=== PATIENT | male | born 1950 | race Caucasian/White ===

== ENCOUNTER → 2018-04-15 12:04 | Outpatient (CLI) | payer MEDICARE, SELFPAY ==
--- NOTE | 2018-04-15 12:12 | XR_ITS ---
XR knee LT 3V HISTORY: ITS.REASON: LEFT KNEE PAIN ORDERING PHYSICIAN: Jeffrey Bower MD PATIENT AGE: 67 years COMPARISON: None FINDINGS: No fracture or dislocation. No lytic or blastic change. Normal mineralization. No significant arthritic changes evident. Small calcific density is present in the proximal patella anteriorly may be due to an enthesophyte No other significant findings IMPRESSION: Negative left knee
== END ==
PROVIDERS: PCP Internal Medicine Adolescent Medicine; Visit Provider Internal Medicine Adolescent Medicine
DX: M25.562 Pain in left knee (principal)
CPT/HCPCS: 73562

== ENCOUNTER → 2018-10-08 15:15 | Outpatient (CLI) | payer MEDICARE, SELFPAY ==
--- NOTE | 2018-10-08 15:33 | MR_ITS ---
MR shoulder RT wo con Ordering Physician: Alexandria Ortiz Patient Age: 68 years: Male HISTORY: ITS.REASON: RT SHOULDER PAIN Injury to right shoulder 5 years ago. Pain past 5 years has gotten worse recently with limited range of motion right arm, right shoulder. TECHNIQUE: Multiplanar multisequence imaging 1.5T MR COMPARISON :No previous studies of right shoulder. A chest film from February 2017 partially includes right shoulder view FINDINGS Supraspinatus tendinopathy & tear.: On the coronal views the patient has a slightly long downward sloping acromion but there is abnormal signal in the thickened supraspinatus tendon beneath the the acromion reflecting tendinopathy throughout subacromial arch & critical zone of supraspinatus tendon. Also notable AC joint hypertrophy/arthropathy encroaches upon the supraspinatus at medial outlet But more peripheral at the supraspinatus tendon there is a fluid-filled full-thickness supraspinatus/ rotator cuff tear defect measuring at least 12 mm diameter at tendon insertion. Minimal associated fluid at subdeltoid subacromial bursa Degenerative Cystic changes, insertional erosions & mild osseous irregularity is seen beneath this region throughout the cap of greater tuberosity.. Just anterior to this area there is a focal area of prominent abnormal signal-suspect this is a abnormal biceps tendon just superior as it passes just above the bicipital groove... Likely Enlargement and increased interstitial signal reflect generous interstitial tear of biceps tendon.. I suspect is slightly redundant but is not been transected. Fluid is seen tracking along the biceps tendon sheath more inferiorly. Alternatively the focal signal here could reflect focal fluid collection at the anterior interval. Subscapularis tendon with upper normal signal, along its superior margin with possible mild tendinopathy here. Some of this signal may reflect some fluid joint fluid outlining the subcoracoid recess as well. Infraspinatus tendon.: Insertional erosion. Suggestion minor tendinopathy at its insertion. Scant increased signal along the tendon Glenoid labrum. Fluid signal is seen beneath the anterior superior labrum. This extends up to the level of the biceps tendon insertion... Most likely a prominent prominent sublabral foramen & recess as it does not continue posterior to the biceps tendon insertion. However this is quite evident on the coronal view and difficult to totally exclude a superior labral tear with this overall appearance. This observation may benefit from inspection if further procedure performed. IMPRESSION......... 1. Full-thickness Rotator cuff tear at supraspinatus tendon insertion: ... Supraspinatus tendinopathy & tear., Thickened supraspinatus tendon seen throughout the subacromial space, with at least 12 mm full-thickness tear fluid-filled defect at supraspinatus insertion 2. Downward sloping acromion encroaches upon thickened supraspinatus tendon. Also AC joint hypertrophy encroaches upon supraspinatus tendon beneath medial outlet 3. Abnormal Biceps Tendon.. Generous interstitial tear yields focal enlargement and increased signal of biceps tendon just superior to the bicipital groove. 4. Also note Generous sublabral recess;-seen extending extends just beneath biceps tendon insertion... Difficult to totally exclude a superior labral tear in this latter area. But favor more likely Generous sublabralforamen and recess 5. Small Joint effusion. 6. Also note tendinopathy insertion of infraspinatus tendon & subscapularis tendon.
== END ==
PROVIDERS: PCP Internal Medicine Adolescent Medicine; Visit Provider Nurse Practitioner Family
DX: M25.511 Pain in right shoulder (principal); M75.101 Unspecified rotator cuff tear or rupture of right shoulder, not specified as traumatic; G89.29 Other chronic pain
CPT/HCPCS: 73221

== ENCOUNTER 2018-12-26 07:30 | Outpatient (RCR) | payer MEDICARE, SELFPAY | END 2018-12-31 11:07 | disposition home or self-care (01) | LOC: PT.CARL 07:30 | PROVIDERS: Visit Provider Nurse Practitioner Family | DX: M75.101 Unspecified rotator cuff tear or rupture of right shoulder, not specified as traumatic (principal) | CPT/HCPCS: 97014; 97110; 97140; 97163; G0283 ==

== ENCOUNTER → 2019-02-24 15:50 | Outpatient (CLI) | payer MEDICARE, SELFPAY ==
--- NOTE | 2019-02-24 15:59 | XR_ITS ---
EXAM: XR lumbar spine min 4V HISTORY: ITS.REASON: COCCYDYNIA,LT SIDED LOW BACK PAIN ORDERING PHYSICIAN: Jeffrey Bower MD PATIENT AGE: 68 years COMPARISON: CT scan abdomen pelvis 09/27/2015 FINDINGS: There is straightening of normal curvature in the thoracolumbar region. There is mild nonrecent anterior wedging of the T12 vertebral body and minor wedging was seen of T12 on the previous CT scan in September 2015 there has been slight further compression of the T12 vertebral body since that study. There is multilevel anterior and lateral ossific spurring. There is no pars defect. There are hypertrophic facet changes at L4-5 and L5-S1 levels. There appears be bony spinal stenosis at the L 34, L4-5 and L5-S1 levels. IMPRESSION: Multilevel degenerative changes, hypertrophic facet changes lower lumbar spine and there likely is true bony spinal stenosis lower lumbar spine and if there are clinical symptoms suggestive of spinal stenosis consider follow-up CT scan lumbar spine for better evaluation.
--- NOTE | 2019-02-24 15:59 | XR_ITS ---
XR sacroiliac joint BI min 3V COMPARISON: None HISTORY: Low back pain and tailbone pain TECHNIQUE: AP and oblique views of the SI joints FINDINGS: Both SI joints appear normal appearing symmetrical with no sclerosis or other abnormality. The symphysis pubis is normal. IMPRESSION: Negative SI joints bilaterally
--- NOTE | 2019-02-24 15:59 | XR_ITS ---
XR sacrum coccyx min 2V COMPARISON: CT scan abdomen pelvis 09/27/2015 HISTORY: Low back pain and tailbone pain TECHNIQUE: AP and lateral views sacrum and coccyx FINDINGS: The SI joints and symphysis pubis are normal. There appears be slight subluxation of the sacrococcygeal junction which was not seen on the previous CT scan in September 2015. There is 2 to 3 mm anterior offset of the coccygeal segments in relationship to the fifth sacral segment. IMPRESSION: Minor subluxation S 5 and C1 as described and consider CT scan of the lumbar spine to include sacrum and coccyx to evaluate for suspected spinal stenosis lower lumbar spine and to better define the anatomical relationship of the S5 sacral segment and C1 coccygeal segment
== END ==
PROVIDERS: PCP Internal Medicine Adolescent Medicine; Visit Provider Internal Medicine Adolescent Medicine
DX: M53.3 Sacrococcygeal disorders, not elsewhere classified (principal); M54.42 Lumbago with sciatica, left side
CPT/HCPCS: 72110; 72202; 72220

== ENCOUNTER → 2019-03-09 14:13 | Outpatient (CLI) | payer MEDICARE, SELFPAY ==
--- NOTE | 2019-03-09 14:21 | CT_ITS ---
CT lumbar spine wo con INDICATION: Fell Last week, C/O Lower lumbar pain; XRAY on pacs. ITS.REASON: SPINAL STENOSIS ORDERING PHYSICIAN: Jeffrey Bower MD PATIENT AGE: 68 years COMPARISON: None TECHNIQUE: Axial images obtained with sagittal and coronal reformats. All CT scans at the facility use one or more dose reduction, viz: automated exposure control, ma/kV adjustment per patient size (including targeted exams where dose is matched to indication, i.e. head), or iterative reconstruction technique. FINDINGS: There is normal alignment. No fracture or dislocation is evident. No lytic or blastic change. T11-T12: Mild degenerative disc disease. T12-L1: Mild degenerative disc disease. Mild bulging disc. L1-L2: Mild facet and ligamentum flavum hypertrophy. L2-L3: Endplate hypertrophic change with facet and ligamentum flavum hypertrophy and bulging disc with bilateral lateral recess and mild bilateral foraminal narrowing. L3-L4: Degenerative disc disease with bulging disc along with moderate facet and ligamentum flavum hypertrophy with bilateral lateral recess and moderate to severe bilateral foraminal narrowing. There is canal stenosis at 9 mm. L4-5: Bulging disc with severe facet and ligamentum flavum hypertrophy with severe right lateral recess and foraminal narrowing. There are prominent facet osteophytes on the right at this level. There is moderate to severe left-sided foraminal narrowing and lateral recess narrowing. There is canal stenosis. L5-S1: Facet and ligamentum flavum hypertrophy with mild bulging disc. There is an exophytic soft tissue density projecting superior aspect of the left kidney and may be due to renal cyst at 15 mm. IMPRESSION: Abnormal CT of the lumbar spine with multilevel lumbar spondylosis with bulging disc, facet and ligamentum hypertrophy with bilateral lateral recess and foraminal narrowing. Please see above for detailed description at each level. L3-L4: Degenerative disc disease with bulging disc along with moderate facet and ligamentum flavum hypertrophy with bilateral lateral recess and moderate to severe bilateral foraminal narrowing. There is canal stenosis at 9 mm. L4-5: Bulging disc with severe facet and ligamentum flavum hypertrophy with severe right lateral recess and foraminal narrowing. There are prominent facet osteophytes on the right at this level. There is moderate to severe left-sided foraminal narrowing and lateral recess narrowing. There is canal stenosis
== END ==
PROVIDERS: PCP Internal Medicine Adolescent Medicine; Visit Provider Internal Medicine Adolescent Medicine
DX: M48.061 Spinal stenosis, lumbar region without neurogenic claudication (principal)
CPT/HCPCS: 72131

== ENCOUNTER → 2019-10-23 12:44 | Outpatient (CLI) | payer MEDICARE, SELFPAY ==
--- NOTE | 2019-10-23 12:50 | CT_ITS ---
PROCEDURE: CT CHEST W CON CLINICAL HISTORY: PULMONARY NODULE COMPARISON: No exams were available for comparison TECHNIQUE: Axial images obtained with sagittal and coronal reformats. All CT scans at the facility use one or more dose reduction, viz: automated exposure control, ma/kV adjustment per patient size (including targeted exams where dose is matched to indication, i.e. head), or iterative reconstruction technique. FINDINGS: There hyperexpansion of the lung rendon. There is no acute pneumonic infiltrate. There is 5-6 mm noncalcified pulmonary nodule superior segment right lower lobe subpleural in location. No other pulmonary nodules are noted. There is no pleural fluid. Cardiac size is normal, there is mild aortic tortuosity. There is no abnormal mediastinal or hilar lymphadenopathy. There are mild multilevel degenerate changes of the thoracic spine. IMPRESSION: Mild emphysematous change with small noncalcified pulmonary nodule. There is no indication of whether the patient is a smoker or not. However suggest a follow-up CT scan of the chest 6-8 months for continuing evaluation Dictated by: Dr. Ralph Ross MD 10/24/2019 08:[address] Ralph Ross MD in [facility] 10/24/2019 08:59
[2019-10-23 13:17] LABS: Blood Urea Nitrogen 12 mg/dL (7-18); Creatinine,Serum 0.84 mg/dL (0.70-1.30); Estimated Glomerular Filt Rate 90 ml/min (>60); GFR (African American) 109 ML/MIN (>60)
== END ==
PROVIDERS: PCP Internal Medicine Adolescent Medicine; Visit Provider Internal Medicine Adolescent Medicine
DX: R91.1 Solitary pulmonary nodule (principal)
CPT/HCPCS: 36415; 71260; 82565; 84520; Q9967

== ENCOUNTER 2019-11-24 03:04 | Observation (INO) ==
--- NOTE | 2019-11-24 03:29 | Emergency Department Note ---
ED Disposition Clinical Impression: Chest pain Qualifiers: Chest pain type: unspecified Qualified Code(s): R07.9 - Chest pain, unspecified Disposition: Admitted as Observation Condition on Discharge: Good (Stable) Referrals: Jeffrey Bower MD [Primary Care Provider] - Time of Disposition: 04:02 - Critical Care Critical Care Time: No Attestation: On 11/24/19, the high probability of a clinically significant, sudden or life threatening deterioration of the following system(s) required my full and direct attention, intervention and personal management. The time I documented below is in addition to time spent performing reported procedures but includes the following listed in this critical care notation. Medical Decision Making - Medical Records Medical records reviewed: Yes: I reviewed the patient's medical records. - Torsten Inquiry Pt receiving controlled substance: No Tosrten was queried for this patient: No Vital Signs: 11/24/19 03:16 11/24/19 03:25 Temperature 97.8 F Temperature Source Oral Pulse Rate [Right Brachial] 66 73 Respiratory Rate 18 12 Blood Pressure [Right Arm] 140/79 122/73 Blood Pressure Mean [Right Arm] 99 89 Blood Pressure Source [Right Arm] Automatic Cuff Automatic Cuff Blood Pressure Position [Right Arm] Sitting Sitting 02 Sat by Pulse Oximetry 99 95 Oxygen Delivery Method Room Air Room Air - Lab Data Lab results reviewed: Yes: I reviewed the patient's lab results. Lab Results 11/24/19 03:15: WBC 6.4, RBC 4.64, Hgb 14.3, Hct 44.5, MCV 95.8 H, MCH 30.7, MCHC 32.1, RDW 14.0, Plt Count 269, MPV 8.7, Neut % (Auto) 56.0, Lymph % (Auto) 28.1, Lamar % (Auto) 8.5, Eos % (Auto) 6.1, Baso % (Auto) 1.3, Neut # (Auto) 3.6, Lymph # (Auto) 1.8, Lamar # (Auto) 0.5, Eos # (Auto) 0.4, Baso # (Auto) 0.1 11/24/19 03:15: Sodium 142, Potassium 3.7, Chloride 107, Carbon Dioxide 24, Anion Gap 14.7, BUN 12, Creatinine 0.75, Estimated Creat Clear 68, Estimated GFR 103, Est GFR ( Amer) 124, Glucose 95, Calcium 8.2 L, Magnesium 2.1, Troponin I < 0.02 11/24/19 03:15: Total Bilirubin 0.2, Direct Bilirubin 0.1, Indirect Bilirubin 0.1, AST 13 L, ALT 13, Alkaline Phosphatase 71, Total Protein 6.5, Albumin 3.5 Result diagrams: 11/24/19 03:15 11/24/19 03:15 Orders (Tests/Meds): ED MEDICATIONS Generic Name Dose Route Start Last Admin Trade Name Freq PRN Reason Stop Dose Admin Nitroglycerin 0.4 mg 11/24/19 03:26 Nitrostat 0.4mg Sl Tablet SL 11/25/19 03:26 [id number] PRN Chest Pain Discontinued Medications Generic Name Dose Route Start Last Admin Trade Name Freq PRN Reason Stop Dose Admin Aspirin 324 mg 11/24/19 03:26 11/24/19 03:37 Aspirin 81mg Chewable Tablet PO 11/24/19 03:27 324 mg ONCE ONE Administration Belladonna Alkaloids 60 ml 11/24/19 03:26 11/24/19 03:37 Gi Cocktail 60ml Udc PO 11/24/19 03:27 60 ml ONCE ONE Administration Nitroglycerin 1 gm 11/24/19 03:42 11/24/19 03:47 Nitroglycerin 1 Inch Oint Udp TD 11/24/19 03:43 1 gm ONCE ONE Administration ORDERS Category Date Time Status Chest XR -- portable [XR chest portable] Stat Exams 11/24/19 03:25 Ordered B-Type Natriuretic Peptide Stat Lab 11/24/19 03:15 Received Troponin I Q3H Lab 11/24/19 06:30 Ordered Troponin I Q3H Lab 11/24/19 09:30 Ordered ECG Request by /Elizabeth Routine Y 11/24/19 03:23 Ordered - Radiology Data #1 Image(s): Chest Image Reviewed: Yes I reviewed the patient's radiology image Preliminary Findings: Normal/NAD, No Infiltrates Seen 03:54 portable chest x-ray was performed. Preliminary reading by myself showed: No free air, no effusion, no infiltrate, no pneumothorax. Patient did have some chronic broncho-interstitial changes noted. - ECG Data Tracing #1 I reviewed this ECG and interpreted as documented below: (EKG at 3:07 AM showed a sinus bradycardia with sinus arrhythmia, rate of 58 bpm.) Medical Decision Narrative: 03:31 Patient evaluated. EKG performed which showed no acute changes. Patient received 4 aspirin 81 mg p.o. here in the ER. He also received 1 nitroglycerin sublingual which did not have any effect on his pain. He has subsequently received a GI cocktail p.o. Portable chest x-ray and cardiac labs ordered and are pending at this time. 04:00 patient had a normal EKG. Chest x-ray also appears to be normal. His CBC, BMP, BNP, initial troponin and LFTs are all normal. Patient did not have any relief with 1 nitroglycerin sublingual. He subsequently received GI cocktail p.o. which also did not help his discomfort. He then had a 1 inch Nitropaste placed the anterior chest wall with labs still pending, and at this point patient states that he is feeling much better and is not feeling much discomfort at all since the Nitropaste was started. I did go ahead and discussed the patient's case with Dr. He who is on-call for Dr. Dodson and he has agreed to the have the patient admitted to observation for chest pain rule o mo. I have discussed results of work-up, diagnosis and care plan with patient, and daughter. They all understand and all questions answered. Patient will now be admitted. Chest Pain HPI - General Chief Complaint: Chest Pain Stated Complaint: CP; NEW ONSET OF AFIB Time Seen by Provider: 11/24/19 03:11 Mode of Arrival: EMS Limitations: No Limitations Description of Symptoms (Recalled from ER Triage Doc. by RN): PATIENT PRESENTS TO TX 6 VIA EMS FROM HOME C/O INTERMITTENT SHARP L SIDED CHEST PAIN X 2 DAYS. PATIENT REPORTS SEEING PCP YESTERDAY REGARDING THE CHEST PAIN, WHO SENT PATIENT TO DR. TOBIN'S OFFICE FOR EVALUATION. REPORTS BEING DISCHARGED FROM DR. TOBIN'S OFFICE WITH A NEW PRESCRIPTION OF METOPROLOL. REPORTS STARTING DOSE YESTERDAY MORNING. EMS REPORTS 12-LEAD EKG SHOWED A-FIB, BUT PATIENT DENIES ANY HISTORY. EKG UPON ARRIVAL TO ED SHOW NSR. - History of Present Illness HPI narrative: Patient is here in emergency room for evaluation complaining of left-sided chest pain. Patient states he has been having chest pain off and on over the past 3 to 4 days. Patient states that the past 2 days he has woken up around 4:00 in the morning with the discomfort. Pain is left-sided anterior and mid to upper chest. Pain is sharp. Patient denies migration of pain into neck back shoulders arms. No diaphoresis. No nausea or vomiting. Patient saw his PCP yesterday and was referred to cardiology. He saw Dr. Tobin's midlevel yesterday who performed an EKG and subsequently placed patient on metoprolol 25 mg HS. Patient is to follow back up with cardiology in 2 weeks for recheck. Patient decided to call EMS this morning as he began having pain late last night and it has been present for least 5 to 6 hours and does not seem to be getting any better. No shortness of breath. No cough. Patient had a stress test and subsequent heart catheterization back in 2014. Patient did not have any coronary arteries that were amenable to any type of stenting. - Related Data Home Medications Medication Instructions Recorded Confirmed cetirizine 10 mg tablet 10 mg PO DAILY tab 11/23/19 11/24/19 finasteride 5 mg tablet 5 mg PO DAILY tab 11/23/19 11/24/19 pantoprazole 40 mg tablet,delayed 40 mg PO DAILY tab 11/23/19 11/24/19 release tamsulosin 0.4 mg capsule 0.4 mg PO DAILY cap 11/23/19 11/24/19 Metoprolol Succinate 25 mg PO QHS 11/24/19 11/24/19 Allergies Allergy/AdvReac Type Severity Reaction Status Date / Time No Known Allergies Allergy Verified 11/23/19 11:51 [facility] History - Hepatitis A Screen Drug use history?: No High risk sexual behaviors?: No History of sexually transmitted infection?: No Currently employed?: No Childcare worker?: No Do you have indoor plumbing?: Yes Do you have electricity?: Yes Attestation statement:: This patient has been screened for Hepatitis A risk factors. I have reviewed the patient's past medical history: Yes Medical History: Reports:: Gastroesophageal Reflux Disease(GERD) Laterality Cases: Bilateral: Total Knee Replacement Other Surgeries: Yes: Cholecystectomy - Social History Smoking Status: Current every day smoker # Packs/Day (cigarettes): 1 #Yrs smoked (if former smoker): 40 Alcohol Intake: never Substance Use Type: denies use Occupational Status: retired Housing: house Household Members: spouse Family Hx:: Cancer Comment: Mother-Cancer, Pacemaker ROS Obtained: Yes All systems reviewed & no additional complaints - Constitutional Constitutional: Reports system reviewed and no additional complaints, except as docu - Eyes Eyes: Reports system reviewed and no additional complaints, except as docu - ENT Ears, Nose, Mouth, and Throat: Reports system reviewed and no additional complaints, except as docu - Cardiovascular Cardiovascular: Reports system reviewed and no additional complaints, except as docu, Reports as per HPI, Reports chest pain, Denies chest pain at rest, Denies leg pain with activity, Denies dyspnea, Denies irregular heart rhythm, Denies palpitations, Denies shortness of breath causing sudden awakening, Denies pedal edema, Denies radiating jaw, neck or arm pain, Denies rapid heart rate - Respiratory Respiratory: Yes system reviewed and no additional complaints, except as docu, Yes as per HPI, No chest congestion, No cough - Gastrointestinal Gastrointestingal: Reports: system reviewed and no additional complaints, except as docu - Genitourinary Male Genitourinary: Reports system reviewed and no additional complaints, except as docu - Musculoskeletal Musculoskeletal: Reports system reviewed and no additional complaints, except as docu - Integumentary/Breasts Skin/Breast: Reports system reviewed and no additional complaints, except as docu - Neurologic Neurologic: Reports system reviewed and no additional complaints, except as docu - Endocrine Endocrine: Reports system reviewed and no additional complaints, except as docu - Hematologic/Lymphatic Henatologic/Lymphatic: Reports system reviewed and no additional complaints, except as docu - Allergic/Immunologic Allergic/Immunologic: Reports system reviewed and no additional complaints, except as docu Physical Exam - General General appearance: alert, in no apparent distress - Head Head exam: atraumatic, normocephalic, normal inspection - Eye Eye exam: Present: normal appearance, PERRL, EOMI - ENT ENT exam: Present: mucous membranes moist, other (No otic or nasal discharge.) - Neck Neck exam: Present: trachea midline - Chest Chest inspection: Present: normal inspection, symmetric chest wall rise - Respiratory Respiratory exam: Present: normal lung sounds bilaterally. Absent: wheezes - Cardiovascular Cardiovascular exam: Present: regular rate, normal heart sounds. Absent: systolic murmur - Abdominal Exam Abdominal exam: Present: soft, normal bowel sounds. Absent: tenderness, guarding, rebound, rigidity - Extremities Exam Extremities exam: Present: normal inspection, full ROM - Back Exam Back exam: Present: normal inspection - Neurological Exam Neurological exam: Present: alert, oriented X3, CN II-XII intact - Psychiatric Psychiatric exam: Present: normal affect, normal mood. Absent: agitated, anxious - Skin Skin exam: Present: warm, dry, intact. Absent: rash, cyanosis, diaphoresis
[2019-11-24 03:30] LABS: Basophils # 0.1 K/mm3 (0-0.2); Basophils % 1.3 % (0.1-2.0); Eosinophils # 0.4 K/mm3 (0.0-0.4); Eosinophils % 6.1 % (0.1-12.0); Hematocrit 44.5 % (42.0-52.0); Hemoglobin 14.3 g/dL (14.1-18.0); Lymphocytes # 1.8 K/mm3 (0.7-4.5); Lymphocytes % 28.1 % (10-50); Mean Corpuscular HGB Conc 32.1 g/dL (31.8-35.4); Mean Corpuscular Volume 95.8 fl (80-94); Mean Platelet Volume 8.7 fl (7.4-10.4); Monocytes # 0.5 K/mm3 (0.1-1.0); Monocytes % 8.5 % (1.7-9.3); Neutrophils # 3.6 K/mm3 (1.8-7.8); Platelet Count 269 K/mm3 (142-424); Red Blood Count 4.64 M/mm3 (4.60-6.20); White Blood Count 6.4 K/mm3 (4.8-10.8)
[2019-11-24 03:40] LABS: Albumin Level 3.5 gm/dL (3.4-5.0); Bilirubin,Direct 0.1 mg/dL (0.0-0.2); Bilirubin,Indirect 0.1 mg/dL (0.0-0.9); Bilirubin,Total 0.2 mg/dL (0.2-1.0); Total Protein,Serum 6.5 gm/dL (6.4-8.2)
[2019-11-24 03:43] LABS: Anion Gap 14.7 mEq/L (5-15); Blood Urea Nitrogen 12 mg/dL (7-18); Calcium 8.2 mg/dL (8.5-10.1); Carbon Dioxide 24 mmol/L (21.0-32.0); Chloride 107 mmol/L (98-107); Glucose 95 mg/dL (74-106); Sodium 142 mmol/L (136-145)
--- NOTE | 2019-11-24 07:48 | History & Physical Report ---
*Admission Date: 11/24/19 *Chief complaint: chest pain *History of present illness: 69-year-old gentleman with history of tobacco use disorder, COPD, hyperlipidemia who presented to the ER with worsening chest pain. Of note patient was seen in clinic yesterday for same complaint. EKG was obtained at that time that was normal and stable over the past 6 months. He was referred to cardiology because of suspicious complaint and several risk factors with a heart score of 4. On presentation to cardiology as blood pressure was slightly elevated he was initiated on beta-kenya and scheduled for very close follow-up. Patient had had a stress test and heart cath 5 years ago that had no clinically significant lesions. After getting home however patient had recurrence of his chest pain. Yesterday during office hours he had stated that it would occur in the middle of the night and sometimes wake him from sleep. Has been going on for the past several days to week. Shortness of breath is at his baseline with his COPD. In the ER EKG continue to be normal with negative troponins. Pain did not respond to nitroglycerin. He was admitted for observation and inpatient cardiology consult. [facility] History I have reviewed the patient's past medical history: Yes Medical History: Reports:: Gastroesophageal Reflux Disease(GERD), Heart Murmur, Hyperlipidemia, Hypertension Denies:: Cancer, Diabetes Mellitus Type 1, Diabetes Mellitus Type 2, MRSA *Have you ever received a pneumonia vaccine?: Yes *Have you received a flu vaccine this season?: Yes Other Medical History: Reports: Cataracts, Sinus Problems Laterality Cases: Bilateral: Cataract, Total Knee Replacement Other Surgeries: Yes: Cardiac Catheterization, Cholecystectomy, Colonoscopy Amputation: No Fractures: No - *Social History Educational Level: Attended High School Smoking Status: Current every day smoker Tobacco Type: cigars # Packs/Day (cigarettes): 1 #Yrs smoked (if former smoker): 40 Alcohol Intake: former Substance Use Type: denies use *Occupational Status:: retired Housing: house Household Members: spouse, family *Travel in the last 8 weeks: None Family Hx:: Cancer, Hypertension Review of Systems - Review of Systems Review of systems:: pertinent systems reviewed and negative unless documented below Meds Home Medications Medication Instructions Recorded Confirmed Type cetirizine 10 mg tablet 10 mg PO HS tab 11/23/19 11/24/19 History finasteride 5 mg tablet 5 mg PO HS tab 11/23/19 11/24/19 History pantoprazole 40 mg tablet,delayed 40 mg PO HS tab 11/23/19 11/24/19 History release tamsulosin 0.4 mg capsule 0.4 mg PO HS cap 11/23/19 11/24/19 History Metoprolol Succinate 25 mg PO HS 11/24/19 11/24/19 History Allergies Allergy/AdvReac Type Severity Reaction Status Date / Time No Known Allergies Allergy Verified 11/23/19 11:51 Exam Vital signs and Labs for Last 24 Hours: Temp Pulse Resp BP Pulse Ox 97.9 F 65 21 123/63 96 11/24/19 04:53 11/24/19 04:55 11/24/19 04:53 11/24/19 04:53 11/24/19 04:53 Laboratory Results - last 24 hr 11/24/19 03:15: WBC 6.4, RBC 4.64, Hgb 14.3, Hct 44.5, MCV 95.8 H, MCH 30.7, MCHC 32.1, RDW 14.0, Plt Count 269, MPV 8.7, Neut % (Auto) 56.0, Lymph % (Auto) 28.1, [place] % (Auto) 8.5, Eos % (Auto) 6.1, Baso % (Auto) 1.3, Neut # (Auto) 3.6, Lymph # (Auto) 1.8, [place] # (Auto) 0.5, Eos # (Auto) 0.4, Baso # (Auto) 0.1 11/24/19 03:15: Sodium 142, Potassium 3.7, Chloride 107, Carbon Dioxide 24, Anion Gap 14.7, BUN 12, Creatinine 0.75, Estimated Creat Clear 68, Estimated GFR 103, Est GFR ( Amer) 124, Glucose 95, Calcium 8.2 L, Magnesium 2.1, Troponin I < 0.02 11/24/19 03:15: B-Natriuretic Peptide 16 11/24/19 03:15: Total Bilirubin 0.2, Direct Bilirubin 0.1, Indirect Bilirubin 0.1, AST 13 L, ALT 13, Alkaline Phosphatase 71, Total Protein 6.5, Albumin 3.5 11/24/19 06:49: Troponin I < 0.02 I & O for Last 24 hours: Intake & Output 11/21/19 11/22/19 11/23/19 11/24/19 23:59 23:59 23:59 23:59 Weight 66.735 kg - *Routine HEENT Exam Head: Present: normocephalic Eye: Present: EOMI, PERRL ENT: Present: mucous membranes moist - *Routine Neck Exam Present: supple. Absent: lymphadenopathy - *Routine Respiratory Exam Present: CTA bilaterally - *Routine Cardiovascular Exam Present: RRR - *Routine Abdominal Exam Present: soft, normoactive bowel sounds. Absent: tenderness - *Routine Extremities Exam Absent: cyanosis, clubbing, edema - *Routine Skin Exam Present: warm. Absent: rash - *Routine Neurological Exam Present: alert, oriented X3 Assessment and Plan (1) Anxiety Current visit: Yes Status: Acute Category: Medical Code(s): F41.9 - Anxiety disorder, unspecified (2) Chest pain Current visit: Yes Status: Acute Qualifiers: Chest pain type: unspecified Qualified Code(s): R07.9 - Chest pain, unspecified Category: Medical Code(s): R07.9 - Chest pain, unspecified (3) Hyperlipidemia Current visit: Yes Status: Chronic Qualifiers: Hyperlipidemia type: mixed hyperlipidemia Qualified Code(s): E78.2 - Mixed hyperlipidemia Category: Medical Code(s): E78.5 - Hyperlipidemia, unspecified (4) Tobacco use Current visit: Yes Status: Chronic Category: Medical Code(s): Z72.0 - Tobacco use - Assessment and plan all Dx Assessment and Plan for all problems:: 69-year-old male with anginal type chest pain. Heart score of 4. Admitted for cardiology consult. Anticipate either stress test or heart cath today. Further recommendations pending cardiology. At this time, he has been monitored overnight on telemetry with no further events. Pain resolved after nitro patch. Hemodynamically stable today.
--- NOTE | 2019-11-24 09:00 | Pharmacy Consult Notes ---
[facility] Pharmacy VTE Monitoring - Patient Demographics Admission date: 11/24/19 Report Date: 11/24/19 Time: 09:00 Allergies/Adverse Reactions: Patient Allergies No Known Allergies Allergy (Verified 11/23/19 11:51) Height: 1.8 m Weight: 66.735 kg Patient Problems: Current Active Problems Chest pain (Acute) - VTE Risk Labs: VTE Related Lab Results Hgb 14.3 g/dL (14.1-18.0) 11/24/19 03:15 Hct 44.5 % (42.0-52.0) 11/24/19 03:15 Plt Count 269 K/mm3 (142-424) 11/24/19 03:15 BUN 12 mg/dL (7-18) 11/24/19 03:15 Creatinine 0.75 mg/dL (0.70-1.30) 11/24/19 03:15 Estimated Creat Clear 68 mL/min (50-200) 11/24/19 03:15 Was VTE Risk Assessment Performed: Yes VTE Score: 4 VTE Risk Level: Low Risk Clinical Trial Participant: No - Prophylaxis VTE Prophylaxis Ordered?: Yes Types of VTE Prophylaxis: TEDS Knee High
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
--- NOTE | 2019-11-24 13:32 | Discharge Summary ---
General - General Admission date:: 11/24/19 Discharge date: 11/24/19 HPI HPI: 69-year-old gentleman with history of tobacco use disorder, COPD, hyperlipidemia who presented to the ER with worsening chest pain. Of note patient was seen in clinic yesterday for same complaint. EKG was obtained at that time that was normal and stable over the past 6 months. He was referred to cardiology because of suspicious complaint and several risk factors with a heart score of 4. On presentation to cardiology as blood pressure was slightly elevated he was initiated on beta-kenya and scheduled for very close follow-up. Patient had had a stress test and heart cath 5 years ago that had no clinically significant lesions. After getting home however patient had recurrence of his chest pain. Yesterday during office hours he had stated that it would occur in the middle of the night and sometimes wake him from sleep. Has been going on for the past several days to week. Shortness of breath is at his baseline with his COPD. In the ER EKG continue to be normal with negative troponins. Pain did not respond to nitroglycerin. He was admitted for observation and inpatient cardiology consult. Hospital Course Hospital Course: Patient monitored overnight on telemetry. No further episodes and no arrhythmias. Troponins within normal range. Taken for stress test this morning and passed with no concerning findings. Cardiology recommended optimizing his treatment for anginal symptoms. Additionally we will add omeprazole at this time to treat for any gastritis/GERD type symptoms. Plan to follow-up in the outpatient setting in 1 to 2 weeks to assess response to current therapy. Offered reassurance that pain is likely unrelated to his heart. Will pursue work-up for other options pending response to therapies on discharge. Denies chest pain at this time, nausea, vomiting, diarrhea. Does complain of some constipation. No shortness of breath. No confusion. Family at bedside and updated of plan. Patient medically stable for discharge home. Objective Vital signs: Temp Pulse Resp BP Pulse Ox 98.0 F 50 L 17 108/53 L 96 11/24/19 07:51 11/24/19 08:00 11/24/19 07:51 11/24/19 07:51 11/24/19 07:51 Narrative: - *Routine HEENT Exam Head: Present: normocephalic Eye: Present: EOMI, PERRL ENT: Present: mucous membranes moist - *Routine Neck Exam Present: supple. Absent: lymphadenopathy - *Routine Respiratory Exam Present: CTA bilaterally - *Routine Cardiovascular Exam Present: RRR - *Routine Abdominal Exam Present: soft, normoactive bowel sounds. Absent: tenderness - *Routine Extremities Exam Absent: cyanosis, clubbing, edema - *Routine Skin Exam Present: warm. Absent: rash - *Routine Neurological Exam Present: alert, oriented X3 Results Labs on day of discharge: Labs from last 24 hours 11/24/19 11/24/19 11/24/19 09:43 06:49 03:15 WBC RBC Hgb Hct MCV MCH MCHC RDW Plt Count MPV Neut % (Auto) Lymph % (Auto) [place] % (Auto) Eos % (Auto) Baso % (Auto) Neut # (Auto) Lymph # (Auto) [place] # (Auto) Eos # (Auto) Baso # (Auto) Sodium Potassium Chloride Carbon Dioxide Anion Gap BUN Creatinine Estimated Creat Clear Estimated GFR Est GFR ( Amer) Glucose Calcium Magnesium Total Bilirubin 0.2 Direct Bilirubin 0.1 Indirect Bilirubin 0.1 AST 13 L ALT 13 Alkaline Phosphatase 71 Troponin I < 0.02 < 0.02 B-Natriuretic Peptide Total Protein 6.5 Albumin 3.5 11/24/19 11/24/19 11/24/19 03:15 03:15 03:15 WBC 6.4 RBC 4.64 Hgb 14.3 Hct 44.5 MCV 95.8 H MCH 30.7 MCHC 32.1 RDW 14.0 Plt Count 269 MPV 8.7 Neut % (Auto) 56.0 Lymph % (Auto) 28.1 [place] % (Auto) 8.5 Eos % (Auto) 6.1 Baso % (Auto) 1.3 Neut # (Auto) 3.6 Lymph # (Auto) 1.8 [place] # (Auto) 0.5 Eos # (Auto) 0.4 Baso # (Auto) 0.1 Sodium 142 Potassium 3.7 Chloride 107 Carbon Dioxide 24 Anion Gap 14.7 BUN 12 Creatinine 0.75 Estimated Creat Clear 68 Estimated GFR 103 Est GFR ( Amer) 124 Glucose 95 Calcium 8.2 L Magnesium 2.1 Total Bilirubin Direct Bilirubin Indirect Bilirubin AST ALT Alkaline Phosphatase Troponin I < 0.02 B-Natriuretic Peptide 16 Total Protein Albumin DS: Diagnosis - Discharge Diagnosis (1) Anxiety Status: Chronic (2) Chest pain Status: Resolved (3) Hyperlipidemia Status: Chronic (4) Tobacco use Status: Chronic Discharge Plan - Patient Discharge Instructions ACTIVITY: Continue current activity DIET: low fat, low cholesterol Patient Instructions: DI for Chest Pain - Follow up Plan Follow up with: Cam Perez MD [Staff Physician] - Ray Tboin MD [Staff Physician] - Disposition: Home, Self-Half-Way Medications: Home Medications Medication Instructions Recorded Confirmed Type cetirizine 10 mg tablet 10 mg PO HS tab 11/23/19 11/24/19 History finasteride 5 mg tablet 5 mg PO HS tab 11/23/19 11/24/19 History pantoprazole 40 mg tablet,delayed 40 mg PO HS tab 11/23/19 11/24/19 History release tamsulosin 0.4 mg capsule 0.4 mg PO HS cap 11/23/19 11/24/19 History Isosorbide Mononitrate [Imdur 30mg 30 mg PO HS 30 Days #30 tab.er.24h 11/24/19 Rx ER tablet] Metoprolol Succinate 25 mg PO HS 11/24/19 11/24/19 History Prescriptions/Medication Reconciliation: Continued finasteride 5 mg tablet 5 mg PO HS tab cetirizine 10 mg tablet 10 mg PO HS tab pantoprazole 40 mg tablet,delayed release 40 mg PO HS tab tamsulosin 0.4 mg capsule 0.4 mg PO HS cap Metoprolol Succinate 25 mg PO HS - Problem Reconciliation Problems Reviewed?: Yes
--- NOTE | 2019-11-24 14:01 | Cardiology Report ---
APPROVED REPORT EXAM: Comprehensive 2D, Doppler, and color-flow Echocardiogram Market Research Analyst: Sneha Campbell RDCS Ht: 5 ft 9 in Wt: 147lbs BSA: 1.81 BP: 97/57 mmHg Indications: CP Conclusion 1. Patient exercised on Kenan protocol for 9 minutes achieved 10 mets of workload on treadmill, she describes no chest pain with exercise. 2. Resting echocardiogram showed normal left ventricular size and function with no regional wall motion abnormality, with exercise there is increase in contractility of all the segments of the myocardium with hyperdynamic left ventricular systolic response no obvious regional wall motion abnormality to suggest underlying ischemic heart disease. 3. Normal exercise stress echo.
--- NOTE | 2019-11-24 14:26 | Electrocardiograph Report ---
APPROVED REPORT Exam: Resting ECG HR:58 bpm ECG Measurements Heart Rate 58 AXES NJ 164 P 74 QRSd 90 QRS -19 QT 410 T70 QTc 402 <Conclusion> Sinus bradycardia with sinus arrhythmia Otherwise normal ECG Electronically signed by : Eber Cifuentes, 11/24/2019 14:26:25
--- NOTE | 2019-11-24 15:16 | Cardiology Report ---
APPROVED REPORT Exam: Exercise Treadmill Technologist: Kat Shannon Ht: 5 ft 11 in Wt: 157 lbs BSA: 1.90 m2 HR: 50 bpm BP: 97/59 mmHg Indications: Chest pain Medical History Medications: Metoprolol,,,,, Pantoprazole,,,,, LoraTidine,,,,, Finasteride,,,,, Stress Test Details Test: Kenan HR Resting HR: 76 bpmMax Heart Rate (APMHR): 149 bpm Max HR Achieved: 134 bpmTarget HR (85% APMHR): 126 bpm % of APMHR: 89 Recovery HR: 54 bpm BP Resting BP: 97.0/59.0 mmHg Max BP: 118.0/68.0 mmHg Recovery BP: 111.0/54.0 mmHg ECG Clinical Reason for Termination: Dyspnea Exercise duration: 09:15 min Highest Stage Achieved: Exercise capacity: 10.1 METs Stress ECG Conclusion Non-diagnostic stress test. Patient exercised on a kenan protocol for 9 minutes and 15 seconds without chest pain or arrhythmias. Less than 1.5mm ST segment changes noted. He did not acheive target heart rate of 127 beats per minute (peak heart rate was 120 beats per minute) due to beta kenya therapy. Total METS acheived was 10.1 and peak blood pressure 118/58 mmHg. See the echo report for further information. Test Summary REST.......Sitting REST.......Standing REST04:160.00.076.97/ 59.. Stage 101:0010.01.790.... Stage 102:0010.01.794.... Stage 103:0010.01.791.110/ 62.. Stage 201:0012.02.596.... Stage 202:0012.02.592.... Stage 203:0012.02.592.115/ 62.. Stage 301:0014.03.4108.... Stage 302:0014.03.4120.... Stage 303:0014.03.4113.118/ 68.. Stage 400:1516.00.0119...Stop exercise at 09:15 [id number]:000.00.074.... [id number]:000.00.060.... [id number]:000.00.073.... ALZUXEVO69:000.00.051.... TGEVUNXX96:000.00.052.... [id number]:000.00.054.... FHZZRWKF71:000.00.058.... [id number]:000.00.061.... [id number]:000.00.054.... TBBRUKRZ71:290.00.056.... Electronically signed by : George Smith, 11/24/2019 15:15:54
== END 2019-11-24 13:59 | disposition home or self-care (01) ==
LOC: ER 03:04 → 2ND 03:04
PROVIDERS: ADMIT Family Medicine; ATTEND Internal Medicine Adolescent Medicine
CPT/HCPCS: 36415; 71010; 71045; 80048; 80076; 83735; 83880; 84484; 85025; 93005; 93017; 93350; 99284; G0378

== ENCOUNTER → 2019-12-15 13:15 | Outpatient (POV) | payer MEDICARE, SELFPAY ==
[2019-12-15 13:58] VITALS: BP 134/77; PULSE 86; RESP 18; O2SAT 97; BMI 20.9
--- NOTE | 2019-12-15 16:08 | HMH.PMCON ---
Assessment and Plan (1) Shingles Current visit: Yes Status: Acute Category: Medical Code(s): B02.9 - Zoster without complications - Assessment and plan all Dx Assessment and Plan for all problems:: Patient is doing well at this time does not need any intervention. Patient understands that in the future if he needs any intervention in regards to shingles pain he is to call the office. Dr. Thomas has reviewed this note and agrees with this plan of care. This note was dictated using voice recognition software and may contain errors or omissions HPI - Data of Consult Consult date: 12/15/19 Requesting Physician: Racquel Morel APRN Primary Care Provider: Jeffrey Bower MD - Consult Narrative Reason for consult: Shingles History of present illness: Mr. Sykes is a 69 year old male who presents today for consultation in regards to a new outbreak of shingles. Patient has had this for several days however he has been on acyclovir and they have now healed up. He is having no pain. He rates pain a 0 out of 10 overall doing well. CC: Racquel Morel APRN [facility] History I have reviewed the patient's past medical history: Yes Medical History: Reports:: Gastroesophageal Reflux Disease(GERD), Heart Murmur, Hyperlipidemia, Hypertension Denies:: Cancer, Diabetes Mellitus Type 1, Diabetes Mellitus Type 2, MRSA *Have you ever received a pneumonia vaccine?: Yes *Have you received a flu vaccine this season?: Yes Other Medical History: Reports: Cataracts, Sinus Problems Other Surgeries: Yes: Cardiac Catheterization, Cholecystectomy, Colonoscopy Amputation: No Fractures: No - *Social History Smoking Status: Current every day smoker Tobacco Type: cigarettes # Packs/Day (cigarettes): 1 #Yrs smoked (if former smoker): 40 Alcohol Intake: never Substance Use Type: denies use *Occupational Status:: retired Housing: house Household Members: spouse, family *Travel in the last 8 weeks: None Family Hx:: Cancer, Hypertension Review of Systems - Review of Systems ROS General: no recent weight change, no fever, no sleep disturbances Respiratory: no cough, no shortness of air, no recurring pulmonary infections Cardiovascular/Peripheral Vascular: No chest pain, No palpitations, no edema, no shortness of breath. Gastrointestinal: no new onset incontinence, normal bowel movements reported Genitourinary: no new onset incontinence Musculoskeletal: Back pain, leg pain Psychiatric: normal mood/ affect Neurological: [denies new onset weakness in extremities], [denies new onset balance issues] Meds Home Medications Medication Instructions Recorded Confirmed Type cetirizine 10 mg tablet 10 mg PO HS tab 11/23/19 11/24/19 History finasteride 5 mg tablet 5 mg PO HS tab 11/23/19 12/15/19 History pantoprazole 40 mg tablet,delayed 40 mg PO HS tab 11/23/19 12/15/19 History release tamsulosin 0.4 mg capsule 0.4 mg PO HS cap 11/23/19 12/15/19 History Isosorbide Mononitrate [Imdur 30mg 30 mg PO HS 30 Days #30 tab.er.24h 11/24/19 Rx ER tablet] Metoprolol Succinate 25 mg PO HS 11/24/19 12/15/19 History Acyclovir [Acyclovir 800mg tab] 800 mg PO Q4H 12/15/19 12/15/19 History Allergies Allergy/AdvReac Type Severity Reaction Status Date / Time No Known Allergies Allergy Verified 12/15/19 14:04 Objective Vital signs: Pulse Resp BP Pulse Ox 86 18 134/77 97 12/15/19 13:58 12/15/19 13:58 12/15/19 13:58 12/15/19 13:58 Narrative: Physical Exam General: Alert and oriented x3, no acute distress, pleasant and cooperative, [on room air] Lungs: Resps E/U, Symmetrical chest expansion, Eyes: PERRL Musculoskeletal: Flexion and extension of lumbar spine somewhat guarded secondary to pain, deep tendon reflexes normal, strength in upper and lower extremities [5/5], [abnormal gait noted] Neurological: speech clear, comic writer equal, no gross sensory deficits
== END ==
PROVIDERS: PCP Internal Medicine Adolescent Medicine; Visit Provider Clinical Nurse Specialist Family Health
DX: B02.9 Zoster without complications (principal); Z80.9 Family history of malignant neoplasm, unspecified; K21.9 Gastro-esophageal reflux disease without esophagitis; R01.1 Cardiac murmur, unspecified; E78.5 Hyperlipidemia, unspecified; Z72.0 Tobacco use; I10 Essential (primary) hypertension
CPT/HCPCS: 99202

== ENCOUNTER → 2020-12-01 07:21 | Outpatient (CLI) | payer MEDICARE, OTHER, SELFPAY ==
--- NOTE | 2020-12-01 | US_ITS ---
APPROVED REPORT Exam Type: Ankle to Brachial Index Car Driver: Marry Schmidt RT(R) Indications Claudication: Bilaterally Current Smoker Risk Factors Current Smoker Pressures/Indices Right Indices Left Indices Brachial 134.00 mmHg Brachial 139.00 mmHg Low Thigh 141.00 mmHg 1.01 Low Thigh 132.00 mmHg 0.95 Calf 137.00 mmHg 0.99 Calf 100.00 mmHg 0.72 Ankle(PT) 162.00 mmHg 1.17 Ankle(PT) 112.00 mmHg 0.81 Ankle(DP) 145.00 mmHg 1.04 Ankle(DP) 107.00 mmHg 0.77 Digit 112.00 mmHg 0.81 Digit 71.00 mmHg 0.51 Findings RT LARRY=1.2 LT LARRY=0.8 RT TBI=0.8 LT TBI=0.5 Abnormal wavefroms LLE Diminished pulses LLE Conclusion RT LARRY=1.2 LT LARRY=0.8 RT TBI=0.8 LT TBI=0.5 Abnormal wavefroms LLE Diminished pulses LLE Mild arterial disease on the left Electronically signed by : Waylon Verde MD 12/01/2020 18:03:44
[2020-12-01 07:57] LABS: Basophils # 0.1 K/mm3 (0-0.2); Basophils % 1.2 % (0.1-2.0); Eosinophils # 0.4 K/mm3 (0.0-0.4); Eosinophils % 7.3 % (0.1-12.0); Hematocrit 45.7 % (42.0-52.0); Hemoglobin 14.8 g/dL (14.1-18.0); Lymphocytes # 1.6 K/mm3 (0.7-4.5); Lymphocytes % 28.6 % (10-50); Mean Corpuscular HGB Conc 32.3 g/dL (31.8-35.4); Mean Corpuscular Hemoglobin 31.3 pg (27.0-31.2); Mean Corpuscular Volume 96.7 fl (80-94); Monocytes # 0.5 K/mm3 (0.1-1.0); Monocytes % 9.2 % (1.7-9.3); Neutrophils % 53.8 % (37.0-80.0); Platelet Count 294 K/mm3 (142-424); Red Blood Count 4.72 M/mm3 (4.60-6.20); Red Cell Distribution Width 12.9 % (11.5-17.5); White Blood Count 5.7 K/mm3 (4.8-10.8)
[2020-12-01 09:15] LABS: Alanine Aminotransferase 25 U/L (12-78); Albumin Level 4.3 g/dl (3.5-5.0); Albumin/Globulin Ratio 1.6 (1.1-1.8); Alkaline Phosphatase 80 U/L (38-126); Amylase 55 U/L (30-110); Anion Gap 10.2 mEq/L (5-15); Aspartate Amino Transferase 30 U/L (17-59); Bilirubin,Total 0.6 mg/dl (0.2-1.3); Blood Urea Nitrogen 9 mg/dl (9-20); Calcium 9.4 mg/dl (8.4-10.2); Carbon Dioxide 28 mmol/L (22.0-30.0); Chloride 107 mmol/L (98-107); Estimated Glomerular Filt Rate 83 ml/min (>60); GFR (African American) 100 ML/MIN (>60); Globulin 2.7 g/dL (1.3-3.2); Glucose 83 mg/dl (74-100); Lipase 140 U/L (23-300); Potassium 4.2 mmoL/L (3.5-5.1); Sodium 141 mmol/L (136-145)
[2020-12-01 09:45] LABS: Thyroid Stimulating Hormone 1.38 uIU/mL (0.465-4.68)
== END ==
PROVIDERS: PCP Internal Medicine Adolescent Medicine; Visit Provider Internal Medicine Adolescent Medicine
DX: I70.213 Atherosclerosis of native arteries of extremities with intermittent claudication, bilateral legs (principal); Z87.19 Personal history of other diseases of the digestive system; Z79.899 Other long term (current) drug therapy
CPT/HCPCS: 36415; 80053; 82150; 83690; 84443; 85025; 93923

== ENCOUNTER → 2020-12-09 10:04 | Outpatient (CLI) | payer MEDICARE, OTHER, SELFPAY ==
--- NOTE | 2020-12-09 10:18 | CT_ITS ---
Procedure: CT ANGIO ABDOMEN/FEMORAL CLINICAL HISTORY: INTERMITTENT CLAUDICATION left leg pain COMPARISON: No exams were available for comparison TECHNIQUE: IV Contrast: 100ml Isovue 370 Axial images obtained with sagittal and coronal reformats. All CT scans at the facility use one or more dose reduction, viz: automated exposure control, ma/kV adjustment per patient size (including targeted exams where dose is matched to indication, i.e. head), or iterative reconstruction technique. FINDINGS: There are mild atherosclerotic changes the abdominal aorta with mild ectasia of the abdominal aorta measuring up to 2.2 cm. There are mild atheromatous changes of the common iliac arteries. No significant stenosis. There is narrowing the proximal aspect of the right external iliac artery by approximately 50 percent. Moderate stenosis involves the mid aspect of the left external iliac artery by approximately 50 percent. Right lower extremity: Minimal atheromatous change of the superficial femoral artery but no significant stenosis. Popliteal artery is unremarkable. There is poor opacification of the runoff vessels below the knee on the right. The vessels are visualized to at least the mid calf region on the right Left lower extremity: The common femoral artery is unremarkable. Mild atheromatous changes are present involving the left superficial femoral artery with approximately 30 percent stenosis in the mid SFA on the left. Scattered atheromatous changes are present involving the left SFA. There is a short segment area of severe stenosis involving the distal aspect of the left SFA at the junction of the popliteal artery. This area of stenosis is high-grade of 80-90 percent. Popliteal artery has an unremarkable appearance. There are atheromatous changes involving the runoff vessels below the calf on the left with scattered segmental small areas of stenosis. Two vessel runoff is present at the ankle on the left comprised of the peroneal and posterior tibial artery. IMPRESSION: 1. Short segment high-grade stenosis involving the junction of the left superficial femoral artery and popliteal artery 80 - 90 percent 2. Approximately 50 percent stenosis of the right and left external iliac arteries. Dictated by: Waylon Verde MD 12/10/2020 07:14 Waylon Verde MD in [place] 12/10/2020 07:14
== END ==
PROVIDERS: PCP Internal Medicine Adolescent Medicine; Visit Provider Internal Medicine Adolescent Medicine
DX: I70.213 Atherosclerosis of native arteries of extremities with intermittent claudication, bilateral legs (principal)
CPT/HCPCS: 75635; Q9967

== ENCOUNTER → 2020-12-15 13:47 | Outpatient (CLI) | payer MEDICARE, OTHER, SELFPAY ==
--- NOTE | 2020-12-15 13:51 | CT_ITS ---
PROCEDURE: CT CHEST W CON CLINCAL INDICATION: Pulmonary nodule Iso 370 75ml COMPARISON: CT CT CHEST W CON from 10/23/2019 TECHNIQUE: IV Contrast: 75ml Isovue 370 Axial images obtained with sagittal and coronal reformats. All CT scans at the facility use one or more dose reduction, viz: automated exposure control, ma/kV adjustment per patient size (including targeted exams where dose is matched to indication, i.e. head), or iterative reconstruction technique. FINDINGS: There is a well-circumscribed area of fat density along the anterior neck on the right measuring 2.7 cm. 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 There is mild dilatation of the proximal descending thoracic aorta at 3.6 cm not significantly changed. No evidence of aortic dissection or pulmonary embolus. No mediastinal mass or hilar adenopathy. Centrilobular emphysema/COPD noted with scattered areas of scarring including both apices. Nodularity noted in the right minor fissure unchanged. There is a 6 mm noncalcified nodule in the right lower lobe image 48 series 3 unchanged. No new nodules are evident. No effusions or infiltrates. IMPRESSION: Stable CT appearance of the chest. There are centrilobular emphysematous changes with COPD and scattered areas of scarring. There is a stable 6 mm nodule in the right lower lobe. Other stable nodular opacities are present in the right minor fissure.. The questionnaire states that the patient is a smoker. If the patient meets qualifications then, would suggest annual LDCT. Mild ectasia of the thoracic aorta unchanged. Dictated by: Waylon Verde MD 12/16/2020 12:51 Waylon Verde MD in [place] 12/16/2020 12:51
[2020-12-15 14:35] LABS: Basophils # 0.1 K/mm3 (0-0.2); Basophils % 1.2 % (0.1-2.0); Eosinophils # 0.3 K/mm3 (0.0-0.4); Eosinophils % 3.8 % (0.1-12.0); Hematocrit 46.3 % (42.0-52.0); Hemoglobin 15.8 g/dL (14.1-18.0); Lymphocytes # 1.9 K/mm3 (0.7-4.5); Lymphocytes % 26.2 % (10-50); Mean Corpuscular HGB Conc 34.2 g/dL (31.8-35.4); Mean Corpuscular Hemoglobin 32.5 pg (27.0-31.2); Mean Corpuscular Volume 95.1 fl (80-94); Monocytes # 0.5 K/mm3 (0.1-1.0); Neutrophils # 4.4 K/mm3 (1.8-7.8); Neutrophils % 61.8 % (37.0-80.0); Platelet Count 300 K/mm3 (142-424); Red Blood Count 4.87 M/mm3 (4.60-6.20); Red Cell Distribution Width 13.5 % (11.5-17.5); White Blood Count 7.1 K/mm3 (4.8-10.8)
[2020-12-15 14:50] LABS: Chloride 105 mmol/L (98-107); Potassium 4.6 mmoL/L (3.5-5.1); Sodium 140 mmol/L (136-145)
[2020-12-15 14:53] LABS: Alanine Aminotransferase 25 U/L (12-78); Albumin Level 4.5 g/dl (3.5-5.0); Albumin/Globulin Ratio 1.6 (1.1-1.8); Alkaline Phosphatase 82 U/L (38-126); Amylase 55 U/L (30-110); Anion Gap 11.6 mEq/L (5-15); Aspartate Amino Transferase 34 U/L (17-59); Bilirubin,Total 0.4 mg/dl (0.2-1.3); Blood Urea Nitrogen 12 mg/dl (9-20); Calcium 9.6 mg/dl (8.4-10.2); Carbon Dioxide 28 mmol/L (22.0-30.0); Estimated Glomerular Filt Rate 95 ml/min (>60); GFR (African American) 115 ML/MIN (>60); Globulin 2.8 g/dL (1.3-3.2); Glucose 97 mg/dl (74-100); Lipase 129 U/L (23-300); Total Protein,Serum 7.3 g/dl (6.3-8.2)
[2020-12-15 15:24] LABS: Thyroid Stimulating Hormone 1.76 uIU/mL (0.465-4.68)
== END ==
PROVIDERS: PCP Internal Medicine Adolescent Medicine; Visit Provider Internal Medicine Adolescent Medicine
DX: R91.1 Solitary pulmonary nodule (principal); I70.213 Atherosclerosis of native arteries of extremities with intermittent claudication, bilateral legs; Z87.19 Personal history of other diseases of the digestive system; Z79.899 Other long term (current) drug therapy
CPT/HCPCS: 36415; 71260; 80053; 82150; 83690; 84443; 85025; Q9967

== ENCOUNTER → 2021-01-26 10:56 | Outpatient (CLI) | payer MEDICARE, OTHER, SELFPAY | PROVIDERS: PCP Internal Medicine Adolescent Medicine; Visit Provider Internal Medicine Adolescent Medicine | DX: R00.2 Palpitations (principal) | CPT/HCPCS: 93225; 93226 ==

== ENCOUNTER → 2021-02-09 08:23 | Outpatient (CLI) | payer MEDICARE, OTHER, SELFPAY ==
--- NOTE | 2021-02-09 08:27 | CA_ITS ---
APPROVED REPORT EXAM: Comprehensive 2D, Doppler, and color-flow Echocardiogram Truck Mechanic: Sneha Campbell RDCS Ht: 5 ft 11 in Wt: 155lbs BSA: 1.89 BP: 98/66 mmHg Indications: PALPS BUBBLE STUDY APPEARS NEGATIVE 2D Dimensions LVOT 1.95 cm (M/F) 1.5-2.5 LA Volume 32.80 mL LA Volume Index 17.35 mL/m2 (M/F) 16-34 M-Mode Dimensions RVDd 2.85 cm (0.9-2.6) LA Diam 2.13 cm (1.9-4.0) LVDd 4.52 cm (3.5-5.7) Ao Diam 3.81 cm (2.0-3.7) LVDs 2.96 cm (3.5-5.7) IVSd 0.99 cm (0.6-1.1) PWd 0.91 cm (0.6-1.1) EF (Teich) 63.70% FS 34.50% EDV (Teich) 93.40 mL TAPSE 1.94 (<1.7) ESV (Teich) 33.90 mL LV Diastology E Decel Time 300.00 (160-240 msec) E/A Ratio 0.9 MED E' 8.90 (< 7 cm/sec) E'/MED E' Ratio 5.38 (>14) LAT E' 9.30 (<10 cm/sec) E/LAT E' Ratio 5.15 (>14) Mitral Valve MV E Max Gustavo. 48.00 (40-130 cm/s) MV A Velocity 55.00 (40-130 cm/s) E/A Ratio 0.87 MV Decel. Time 300.00 (160-240 ms) MV PHT 88.00 ms Left Ventricle Left atrium is normal size, left ventricle is normal size, left ventricle wall thickness is upper limit of the normal, there is preserved left ventricular systolic function, visually estimated ejection fraction 55% with no regional wall motion abnormality, grade 1 diastolic dysfunction seen without tissue Doppler evidence of raise left atrial pressure. Right Ventricle Right atrium and right ventricle are mildly enlarged with normal contractility. Atria Intra-atrial septum is intact, there is no flow across the interatrial septum, agitated saline contrast study fails 25 intracardiac shunt. Aortic Valve Aortic valve is minimally thickened and calcified there is no aortic stenosis or aortic insufficiency. Mitral Valve Mitral valve is grossly normal, there is trace mitral regurgitation. Tricuspid Valve Tricuspid grossly normal, there is trace tricuspid regurgitation, tricuspid regurgitation jet velocity is inadequate for calculation of the right ventricular systolic pressure. Pulmonic Valve Pulmonic valve is poorly visualized. Great Vessels Aortic root is normal size. Pericardium No significant pericardial effusion noted. Conclusion 1. Normal left ventricular size, preserved left ventricular systolic function, visually estimated ejection fraction 55% with no regional wall motion abnormality, grade 1 diastolic dysfunction seen without tissue Doppler evidence of raise left atrial pressure. 2. Mildly enlarged right ventricle with normal contractility. 3. Agitated saline contrast study fails to identify intracardiac shunt. 4. No significant pericardial effusion noted. Electronically signed by : George Smith, 02/09/2021 15:52:11
== END ==
PROVIDERS: PCP Internal Medicine Adolescent Medicine; Visit Provider Internal Medicine Adolescent Medicine
DX: I49.5 Sick sinus syndrome (principal); R00.2 Palpitations
CPT/HCPCS: 93306

== ENCOUNTER → 2022-12-01 11:45 | Outpatient (CLI) | payer MEDICARE, OTHER, SELFPAY ==
[2022-12-01 14:04] LABS: Alanine Aminotransferase 14 U/L (12-78); Albumin Level 4.5 g/dl (3.5-5.0); Albumin/Globulin Ratio 1.8 (1.1-1.8); Alkaline Phosphatase 82 U/L (38-126); Anion Gap 10.6 mEq/L (5-15); Aspartate Amino Transferase 25 U/L (17-59); Bilirubin,Total 0.5 mg/dl (0.2-1.3); Blood Urea Nitrogen 12 mg/dl (9-20); Calcium 8.8 mg/dl (8.4-10.2); Carbon Dioxide 29 mmol/L (22.0-30.0); Chloride 107 mmol/L (98-107); Chol/HDL Ratio 5.3 (1-3.5); Cholesterol 205 mg/dl (140-200); Estimated Glomerular Filt Rate 82 ml/min (>60); GFR (African American) 100 ML/MIN (>60); Globulin 2.5 g/dL (1.3-3.2); Glucose 86 mg/dl (74-100); HDL Cholesterol 39 mg/dl (40-60); Potassium 4.6 mmoL/L (3.5-5.1); Sodium 142 mmol/L (136-145); Triglycerides 139 mg/dl (30-150); VLDL Cholesterol 28 mg/dL (0-40)
[2022-12-01 14:16] LABS: Direct LDL Cholesterol 121.41 mg/dL (100-129)
[2022-12-01 14:21] LABS: 25-OH Vitamin D, Total 13.1 ng/mL (30-100)
[2022-12-01 14:23] LABS: Basophils # 0.1 K/mm3 (0-0.2); Basophils % 0.8 % (0.1-2.0); Eosinophils # 0.1 K/mm3 (0.0-0.4); Eosinophils % 1.7 % (0.1-12.0); Hematocrit 46.1 % (42.0-52.0); Lymphocytes # 1.3 K/mm3 (0.7-4.5); Lymphocytes % 16.6 % (10-50); Mean Corpuscular HGB Conc 32.6 g/dL (31.8-35.4); Mean Corpuscular Hemoglobin 30.8 pg (27.0-31.2); Mean Corpuscular Volume 94.7 fl (80-94); Mean Platelet Volume 8.8 fl (7.4-10.4); Monocytes # 0.5 K/mm3 (0.1-1.0); Monocytes % 6.8 % (1.7-9.3); Neutrophils # 5.7 K/mm3 (1.8-7.8); Neutrophils % 73.9 % (37.0-80.0); Platelet Count 292 K/mm3 (142-424); Red Blood Count 4.87 M/mm3 (4.60-6.20); Red Cell Distribution Width 13.3 % (11.5-17.5); White Blood Count 7.7 K/mm3 (4.8-10.8)
[2022-12-01 14:36] LABS: Thyroid Stimulating Hormone 0.82 uIU/mL (0.465-4.68)
[2022-12-01 14:55] LABS: Vitamin B12 485 pg/mL (239-931)
== END ==
PROVIDERS: PCP Internal Medicine Adolescent Medicine; Visit Provider Internal Medicine Adolescent Medicine
DX: I73.9 Peripheral vascular disease, unspecified (principal); J44.1 Chronic obstructive pulmonary disease with (acute) exacerbation; K21.9 Gastro-esophageal reflux disease without esophagitis; F41.1 Generalized anxiety disorder; E55.9 Vitamin D deficiency, unspecified; Z79.899 Other long term (current) drug therapy
CPT/HCPCS: 36415; 80053; 80061; 82306; 82607; 84443; 85025

== ENCOUNTER → 2022-12-11 07:04 | Outpatient (CLI) | payer MEDICARE, SELFPAY ==
--- NOTE | 2022-12-11 07:19 | CT_ITS ---
FINAL REPORT CLINICAL HISTORY: H/O NICOTINE DEPENDENCE CURRENT SMOKER 1PPD X45 YEARS COMPARISON: 12/15/2020 FINDINGS: Low-Dose Chest CT Axial images were obtained from the lung apex to the mid abdomen by computed tomography. Low-dose protocol was utilized. CTDI vol (mGy): 2.90 DLP (mGy-cm): 109.94 There is no axillary adenopathy. There is a stable mildly enlarged subcarinal lymph node measuring 2.4 cm. There is no hilar lymphadenopathy. The heart is proper size. There is a stable prominent thoracic aorta. There is no pericardial or pleural effusion. Lung window images demonstrate changes of emphysema. There is evidence of prior granulomatous disease. There is a stable 6 mm right lower lobe nodule on image 46 that is been stable for 2 years. No new nodule is identified. There is no consolidation. Limited images of the upper abdomen demonstrates an exophytic right renal lesion which is unchanged. There are no acute upper abdomen findings. IMPRESSION: Lung RADS category 1. Recommend 12 month follow-up low-dose chest CT. Modifier S: Stable subcarinal lymphadenopathy. Reviewed, Interpreted and Dictated by Lorena Rodrigez MD Transcribed by Oriana Lara Authenticated and . [facility]
== END ==
PROVIDERS: PCP Internal Medicine Adolescent Medicine; Visit Provider Internal Medicine Adolescent Medicine
DX: Z87.891 Personal history of nicotine dependence (principal); Z12.2 Encounter for screening for malignant neoplasm of respiratory organs
CPT/HCPCS: 71271

== ENCOUNTER → 2023-04-03 08:05 | Outpatient (CLI) | payer MEDICARE, SELFPAY ==
--- NOTE | 2023-04-03 08:12 | XR_ITS ---
FINAL REPORT CLINICAL HISTORY: SI joint pain, osteoarthritis, low back pain COMPARISON: None FINDINGS: SACROILIAC JOINTS SERIES Three views were obtained. There is no acute fracture or dislocation. The joint spaces appear normal. The visualized bony structures are well aligned. No soft tissue abnormality is seen. IMPRESSION: No acute bony abnormality. Reviewed, Interpreted and Dictated by Cherrie Valencia MD Transcribed by Vandana Sorto Authenticated and [facility]
--- NOTE | 2023-04-03 08:12 | XR_ITS ---
FINAL REPORT CLINICAL HISTORY: Chronic right hip pain, osteoarthritis COMPARISON: None FINDINGS: RIGHT HIP Two views of the right hip demonstrate no acute fracture or dislocation. Mild degenerative changes of the right hip. The visualized bony structures are well aligned. No soft tissue abnormality is seen. IMPRESSION: No acute bony abnormality. Reviewed, Interpreted and Dictated by Cherrie Valencia MD Transcribed by Vandana Sorto Authenticated and [facility]
--- NOTE | 2023-04-03 08:12 | XR_ITS ---
FINAL REPORT CLINICAL HISTORY: Low back pain, osteoarthritis COMPARISON: None FINDINGS: LUMBOSACRAL SPINE SERIES Five views of the lumbosacral spine were obtained. There is no fracture present. No malalignment. Moderate spondylosis and degenerative disc disease diffusely. Moderate lower lumbar facet arthropathy. IMPRESSION: Degenerative changes without acute bony abnormality. Reviewed, Interpreted and Dictated by Cherrie Valencia MD Transcribed by Vandana Sorto Authenticated and [facility]
== END ==
LOC: RAD 08:07
PROVIDERS: PCP Internal Medicine Adolescent Medicine; Visit Provider Internal Medicine Adolescent Medicine
DX: M16.11 Unilateral primary osteoarthritis, right hip (principal); M54.59 Other low back pain
CPT/HCPCS: 72110; 72202; 73502

== ENCOUNTER 2024-03-27 07:21 | Day surgery (SDC) | payer MEDICARE, SELFPAY ==
[2024-03-27 07:40] VITALS: BP 143/59; PULSE 63; RESP 18; TEMP 36.1; O2SAT 95; BMI 22.1
--- NOTE | 2024-03-27 08:21 | P.OP_ITS ---
Date of procedure: 03/27/24 Pre-op Diagnosis:: Left anterior neck skin lesion (1 cm) Post-op Diagnosis:: Same Procedure performed:: Excision of left anterior neck skin lesion (1 cm) Surgeon:: Juan Rivers MD Anesthesia: local Estimated blood loss (mL): 5 Operative findings:: Lesion excised with 4 mm margin Operative note:: After informed consent was obtained the patient was taken to the procedure room. The left anterior neck region was prepped and draped in a sterile fashion. After infiltration with local anesthetic an elliptical incision was made around the lesion. The lesion was excised in toto and passed off for pathologic eval uation. Electrocautery was utilized to achieve hemostasis. Skin was reapproximated with 4-0 Monocryl in a mattress fashion. Dressings were applied and the patient was discharged home in stable condition. Condition: stable Disposition: no change Specimens:: Left anterior neck skin lesion Complications:: No immediate
[2024-03-27] MEDS: LIDOCAINE 1% 20ML MDV 20 ML (08:45)
[2024-03-27 08:55] VITALS: BP 130/71; PULSE 58; RESP 18; TEMP 36.2; O2SAT 97
== END 2024-03-27 09:05 | disposition home or self-care (01) ==
PROVIDERS: PCP Internal Medicine Adolescent Medicine; Visit Provider Surgery
PROC: (CPT 11621; principal; 2024-03-27 08:30)
DX: C44.41 Basal cell carcinoma of skin of scalp and neck (principal)
CPT/HCPCS: 11621

== ENCOUNTER 2024-06-23 15:56 | Outpatient (POV) | payer MEDICARE, SELFPAY | END 2024-06-23 23:59 | disposition home or self-care (01) | LOC: SC 15:56 | PROVIDERS: PCP Internal Medicine Adolescent Medicine; Visit Provider Dermatology | DX: Z00.00 Encounter for general adult medical examination without abnormal findings (principal) ==

== ENCOUNTER 2024-09-23 15:10 | Emergency (ER) | payer MEDICARE, SELFPAY ==
[2024-09-23] VITALS (8 sets, daily range): BP systolic 108–151; BP diastolic 60–95; PULSE 64–78; RESP 18–20; TEMP 36.6–36.8; O2SAT 95–99; BMI 20.9
--- NOTE | 2024-09-23 15:30 | PC.NURSE ---
DR MARTELL AT BEDSIDE
--- NOTE | 2024-09-23 15:36 | CT_ITS ---
PROCEDURE INFORMATION: Exam: CTA Abdomen and Pelvis With Contrast Exam date and time: 09/23/2024 4:15 PM Age: 74 years old Clinical indication: Abdominal pain; Epigastric; Additional info: Epigastric pain TECHNIQUE: Imaging protocol: Computed tomographic angiography of the abdomen and pelvis with contrast. Exam focused on the arteries. 3D rendering (Not supervised by radiologist): MIP and/or 3D reconstructed images were created by the technologist. Radiation optimization: All CT scans at this facility use at least one of these dose optimization techniques: automated exposure control; mA and/or kV adjustment per patient size (includes targeted exams where dose is matched to clinical indication); or iterative reconstruction. Contrast material: ISOVUE 370; Contrast volume: 80 ml; Contrast route: INTRAVENOUS (IV); COMPARISON: CR XR HIP RT 2-3V W/PELVIS 04/03/2023 8:15 AM FINDINGS: Aorta: No aortic aneurysm. No aortic dissection. Celiac trunk and mesenteric arteries: No occlusion or significant stenosis. Renal arteries: No occlusion or significant stenosis. Right iliac arteries: There is a short segment dissection extending from the right common to external iliac artery with moderate central narrowing. Left iliac arteries: No occlusion or significant stenosis. Liver: No mass. Gallbladder and biliary ducts: The patient is status post cholecystectomy. Pancreas: Unremarkable. No mass. No ductal dilation. Spleen: There are multiple calcifications in the spleen most likely reflects small granulomas. Adrenal glands: Unremarkable. No mass. Kidneys and ureters: Unremarkable. No solid mass. No hydronephrosis. Stomach and bowel: Unremarkable. No obstruction. No mucosal thickening. Appendix: No evidence of appendicitis. Intraperitoneal space: Unremarkable. No free air. No significant fluid collection. Lymph nodes: Unremarkable. No enlarged lymph nodes. Urinary bladder: Unremarkable. No mass. Reproductive: Unremarkable as visualized. Bones/joints: No acute fracture. Soft tissues: Subcutaneous nodularity in the left back with overlying ulceration (image 92 series 5), correlate with physical exam. IMPRESSION: 1. Subcutaneous nodularity in the left back with overlying ulceration (image 92 series 5), correlate with physical exam. 2. 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 This is most likely chronic. 3. No acute inflammatory or obstructive process is identified. Additional incidental findings are described within the findings section.
[2024-09-23 15:38] LABS: Microscopic, Urine URINE MICROSCOPIC (MICROSCOPIC)
[2024-09-23 15:40] LABS: Appearance,Urine CLEAR (Clear); Bilirubin,Urine Negative (Negative); Blood, Urine Negative (Negative); Color,Urine YELLOW (Yellow); Glucose,Urine (UA) Negative (Negative); Ketones,Urine Negative (Negative); Leukocyte Esterase,Urine Negative (Negative); Nitrate,Urine Negative (Negative); Protein,Urine Negative (Negative); Specific Gravity, Urine >= 1.030 (1.005-1.030)
[2024-09-23 15:44] LABS: Basophils # 0.1 K/mm3 (0-0.2); Basophils % 0.9 % (0.1-2.0); Eosinophils # 0.3 K/mm3 (0.0-0.4); Eosinophils % 3.6 % (0.1-12.0); Hematocrit 42.1 % (42.0-52.0); Hemoglobin 14.7 g/dL (14.1-18.0); Lymphocytes # 1.1 K/mm3 (0.7-4.5); Lymphocytes % 14.8 % (10-50); Mean Corpuscular HGB Conc 34.9 g/dL (31.8-35.4); Mean Corpuscular Hemoglobin 32.3 pg (27.0-31.2); Mean Corpuscular Volume 92.7 fl (80-94); Mean Platelet Volume 8.4 fl (7.4-10.4); Monocytes # 0.5 K/mm3 (0.1-1.0); Monocytes % 6.6 % (1.7-9.3); Neutrophils # 5.4 K/mm3 (1.8-7.8); Platelet Count 261 K/mm3 (142-424); Red Blood Count 4.55 M/mm3 (4.60-6.20); Red Cell Distribution Width 13.4 % (11.5-17.5); White Blood Count 7.2 K/mm3 (4.8-10.8)
--- NOTE | 2024-09-23 15:50 | ECG_ITS ---
APPROVED REPORT Exam: Resting ECG HR:56 bpm ECG Measurements Heart Rate 56 AXES [place] 163 P 68 QRSd 110 QRS -31 QT 422 T 77 QTc 413 Conclusion SINUS BRADYCARDIA LEFT AXIS DEVIATION [QRS AXIS < -30] ABNORMAL ECG UNCONFIRMED REPORT Electronically signed by : BRENNON PARKER, 09/24/2024 06:50:46
--- NOTE | 2024-09-23 15:53 | ED_ITS ---
Discharge Plan Disposition Patient Disposition: Home, Self-Care Condition: Good Prescriptions Prescriptions: New alum-mag hydroxide-simeth [Maalox Advanced] 200-200-20 mg/5 mL suspension 5 ml PO Q3H PRN (Reason: dyspepsia) Qty: 3000 0RF No Action Trelejavid Ellipta 100-62.5-25 mcg blister with device 1 inh inhalation DAILY duloxetine 20 mg capsule,delayed release(DR/EC) 20 mg PO DAILY albuterol sulfate 90 mcg/actuation HFA aerosol inhaler 1 inh inhalation QID Qty: 6.7 2RF pantoprazole 40 mg tablet,delayed release (DR/EC) 40 mg PO HS tamsulosin 0.4 mg capsule 0.4 mg PO HS cetirizine [Zyrtec] 10 mg tablet 10 mg PO HS dorzolamide 2 % drops Eye-Right TID Patient Comments: INSTILL 1 DROP INTO RIGHT EYE TWICE DAILY brimonidine 0.2 % drops 1 drp Eye-Right Q8H Patient Comments: INSTILL 1 DROP INTO RIGHT EYE TWICE DAILY cilostazol 50 mg tablet 50 mg PO BID Patient Comments: TAKE 1 TABLET BY MOUTH TWICE DAILY azithromycin 250 mg tablet See Rx Instructions PO .COMPLEX Qty: 6 0RF Rx Instructions: For 250 mg dose pack: take 500 mg today (day 1), then 250 mg for 4 days (days 2-5) PO Referrals Follow up/Referrals: Moncho Zhao II, MD [Staff Physician] - See instructions Jeffrey Bower MD [Primary Care Provider] - See instructions Activity Restrictions/Add. Instructions Additional Instructions/Restrictions: You were evaluated in the emergency department today. At this time, it is felt that your symptoms could be related to your GI tract in nature. For your issues with early fullness, poor appetite, and difficulty having bowel movements, I recommend close follow-up outpatient for gastroenterology evaluation. I provided you with information for Dr. Zhao. Please contact his office to schedule an appointment. 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 You may also try Tylenol every 4-6 hours at home as needed for pain. Return to the emergency department for new or worsening symptoms. 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 They will contact you to schedule an appointment. They feel this is chronic. Clinical Impressions Clinical Impression: Abdominal pain, epigastric, Dissection of right iliac artery, Bowel habit changes Instructions Patient Instructions: DI for Acute Abdominal Pain, DI for Epigastric Pain Print Language Print Language: Kazakh Discharge ED Provider: Tiffanie Pimentel General Adult HPI General Chief complaint: Abdominal Pain Stated complaint: abdominal pain Time Seen by Provider: 09/23/24 15:28 Mode of Arrival: Ambulatory Source of Information: Patient Limitations: No Limitations Description of Symptoms (Recalled from ER Triage Doc. by RN): PT C/O ABDOMINAL PAIN THAT STARTED ABOUT 3 HOURS DIESEL [employer]. DENIES N/V/D. DENIES FEVER OR CHILLS. REPORTS BM YESTERDAY BUT HAVE NOT BEEN REGULAR FOR SEVERAL WEEKS History of Present Illness HPI narrative: This patient is a 74-year-old male with a history of hyperlipidemia, GERD, extensive smoking history, COPD, and prior cholecystectomy presenting to the emergency department for evaluation with concern for epigastric abdominal pain. He notes that it started acutely about 3 hours prior to arrival. He states that it started there but did seem to move to the lower part of his abdomen as well. It waxes and wanes but is always painful. He notes it came on suddenly. Nothing seems to make it better or worse. No fevers, chills, vomiting, changes in bowel movements, urinary symptoms, rashes, or swelling. He denies any associated chest pain or shortness of breath. Last bowel movement was yesterday but he notes that he has had irregular bowel movements for several weeks only passing a small amount of stools at the time despite feeling the intense urge to go. Related Data Home Medications ?Medication ?Instructions ?Recorded ?Confirmed cetirizine 10 mg tablet (Zyrtec) 10 mg PO HS SEASONAL ALLERGIES 11/23/19 05/29/24 pantoprazole 40 mg tablet,delayed 40 mg PO HS GERD 11/23/19 05/29/24 release tamsulosin 0.4 mg capsule 0.4 mg PO HS URINARY RETENTION 11/23/19 05/29/24 duloxetine 20 mg capsule,delayed 20 mg PO DAILY 02/21/24 05/29/24 release fluticasone fur. 100 mcg-umeclid 1 inh inhalation DAILY 02/21/24 05/29/24 62.5 mcg-vilant 25 mcg inhalat.powder (Trelegy Ellipta) brimonidine 0.2 % eye drops 1 drp Eye-Right Q8H 05/29/24 05/29/24 cilostazol 50 mg tablet 50 mg PO BID 05/29/24 05/29/24 dorzolamide 2 % eye drops drp Eye-Right TID 05/29/24 05/29/24 Previous Rx's ?Medication ?Instructions ?Recorded albuterol sulfate 90 mcg/actuation 1 inh inhalation QID #6.7 grams 02/21/24 aerosol inhaler azithromycin 250 mg tablet See Rx Instructions PO .COMPLEX #6 05/29/24 tabs aluminum-mag hydroxide-simethicone 5 ml PO Q3H PRN dyspepsia #3,000 mL 09/23/24 200 mg-200 mg-20 mg/5 mL oral susp (Maalox Advanced) Allergies Allergy/AdvReac Type Severity Reaction Status Date / Time No Known Allergies Allergy Verified 05/29/24 12:23 [facility] Disclaimer: The information contained in this section may have been updated after the patient was seen, as this information can be updated by other users. Medical History Anxiety Hyperlipidemia Shingles Basal cell carcinoma Surgical History History of colonoscopy History of cholecystectomy Social History Smoking Status: Current every day smoker tobacco type: cigarettes packs per day: 1 second hand exposure: Yes alcohol intake: never substance use type: denies use current occupational status: retired Travel in the last 8 weeks: None household members: spouse and family housing: house caffeine: Yes Other Medical History Have you received the Flu Vaccine for this season: Yes Have you received the Pneumonia Vaccine: Yes ROS Obtained: Yes All systems reviewed & no additional complaints except as documented Physical Exam General General appearance: alert and in no apparent distress Head Head exam: atraumatic and normocephalic Eye Eye exam: Present normal appearance, PERRL and EOMI ENT ENT exam: Present normal exam, normal oropharynx, mucous membranes moist and normal external ear exam Neck Neck exam: Present normal inspection, full ROM and trachea midline; Absent tenderness Chest Chest inspection: Present normal inspection and symmetric chest wall rise; Absent tenderness Respiratory Respiratory exam: Present normal lung sounds bilaterally; Absent respiratory distress, wheezes, stridor or accessory muscle use Cardiovascular Cardiovascular exam: Present regular rate and normal rhythm Abdominal Exam Abdominal exam: Present soft, tenderness (Epigastric) and guarding (Voluntary guarding in the epigastric region); Absent distention, rebound or rigidity Extremities Exam Extremities exam: Present normal inspection, full ROM and normal capillary refill; Absent tenderness or edema Back Exam Back exam: Present normal inspection and full ROM; Absent tenderness Neurological Exam Neurological exam: Present alert, oriented X3, CN II-XII intact and normal gait; Absent motor sensory deficit Psychiatric Psychiatric exam: Present normal affect and normal mood Skin Skin exam: Present warm and dry Medical Decision Making Medical Records Medical records reviewed: Yes I reviewed the patient's medical records. Screening: Per USPSTF and CDC recommendations, given the prevalence of disease in our region, it is our hospital?s policy to screen for HIV and viral Hepatitis for all patients aged 18 and over and those with ongoing risk factors. [place] Inquiry Pt receiving controlled substance: No Vital Signs: 09/23/24 15:12 09/23/24 16:00 09/23/24 16:30 Temperature 97.9 F Temperature Source Oral Pulse Rate 67 71 Pulse Rate [Radial] 70 Respiratory Rate 18 Blood Pressure 127/73 142/60 H Blood Pressure [Right Arm] 149/66 H Blood Pressure Mean 104 87 Blood Pressure Mean [Right Arm] 93 Blood Pressure Source Blood Pressure Source [Right Arm] Automatic Cuff Blood Pressure Position Blood Pressure Position [Right Arm] Sitting 02 Sat by Pulse Oximetry 98 97 99 Oxygen Delivery Method Room Air Room Air Room Air 09/23/24 17:01 09/23/24 17:32 09/23/24 18:00 Temperature Temperature Source Pulse Rate 70 76 67 Pulse Rate [Radial] Respiratory Rate Blood Pressure 146/95 H 108/76 L 151/72 H Blood Pressure [Right Arm] Blood Pressure Mean 112 86 98 Blood Pressure Mean [Right Arm] Blood Pressure Source Blood Pressure Source [Right Arm] Blood Pressure Position Blood Pressure Position [Right Arm] 02 Sat by Pulse Oximetry 95 97 96 Oxygen Delivery Method Room Air Room Air Room Air 09/23/24 19:14 09/23/24 19:21 Temperature 97.9 F 98.2 F Temperature Source Oral Oral Pulse Rate 78 64 Pulse Rate [Radial] Respiratory Rate 18 20 Blood Pressure 118/72 110/72 Blood Pressure [Right Arm] Blood Pressure Mean Blood Pressure Mean [Right Arm] Blood Pressure Source Automatic Cuff Automatic Cuff Blood Pressure Source [Right Arm] Blood Pressure Position Sitting Blood Pressure Position [Right Arm] 02 Sat by Pulse Oximetry Oxygen Delivery Method Room Air Room Air Lab Data Lab results reviewed: Yes I reviewed the patient's lab results. Lab Results 09/23/24 15:20: Urine Color Yellow, Urine Appearance Clear, Urine pH 6.0, Ur Specific [place] >= 1.030, Urine Protein Negative, Urine Glucose (UA) Negative, Urine Ketones Negative, Urine Blood Negative, Urine Nitrate Negative, Urine Bilirubin Negative, Urine Urobilinogen 1.0, Ur Leukocyte Esterase Negative, Urine RBC Occasional, Urine WBC Occasional, Urine Mucus 4+ 09/23/24 15:35: WBC 7.2, RBC 4.55 L, Hgb 14.7, Hct 42.1, MCV 92.7, MCH 32.3 H, MCHC 34.9, RDW 13.4, Plt Count 261, MPV 8.4, Neut % (Auto) 74.0, Lymph % (Auto) 14.8, [place] % (Auto) 6.6, Eos % (Auto) 3.6, Baso % (Auto) 0.9, Neut # (Auto) 5.4, Lymph # (Auto) 1.1, [place] # (Auto) 0.5, Eos # (Auto) 0.3, Baso # (Auto) 0.1, PT 10.9, INR 0.97, APTT 28.6, Sodium 139, Potassium 3.6, Chloride 108 H, Carbon Dioxide 25, Anion Gap 9.6, BUN 14, Creatinine 0.80, Estimated Creat Clear 62, Estimated GFR 94, Est GFR ( Amer) 114, Glucose 107 H, Lactate 1.0, Calcium 8.6, Total Bilirubin 0.5, AST 28, ALT 18, Alkaline Phosphatase 60, Troponin I < 0.01, Total Protein 6.5, Albumin 4.0, Globulin 2.5, Albumin/Globulin Ratio 1.6, Lipase 86, HIV 1&2 Antibody Rapid Nonreactive 09/23/24 18:10: Troponin I < 0.01 09/23/24 15:35 09/23/24 15:35 Orders (Tests/Meds): ED MEDICATIONS Discontinued Medications Generic Name Dose Route Start Last Admin Trade Name Freq PRN Reason Stop Dose Admin Acetaminophen 1,000 mg 09/23/24 15:35 09/23/24 15:55 Acetaminophen 500mg Tab PO 09/23/24 15:36 1,000 mg ONCE ONE Administration Belladonna Alkaloids 60 ml 09/23/24 18:17 09/23/24 18:23 Belladonna Alkaloids 60 Ml Ml PO 09/23/24 18:18 60 ml ONCE ONE Administration Famotidine 20 mg 09/23/24 15:35 09/23/24 15:55 Famotidine 20mg/2ml Vial IV 09/23/24 15:36 20 mg ONCE ONE Administration Iopamidol 80 ml 09/23/24 16:12 09/23/24 16:14 Iopamidol-370 (76%);100ml Bottle IV 09/23/24 16:13 80 ml ONCE ONE Administration Ketorolac Tromethamine 15 mg 09/23/24 15:35 09/23/24 15:55 Ketorolac 30mg/Ml Vial IV 09/23/24 15:36 15 mg ONCE ONE Administration Ondansetron HCl 4 mg 09/23/24 15:35 09/23/24 15:55 Ondansetron 4mg/2ml Vial IV 09/23/24 15:36 4 mg ONCE ONE Administration Sodium Chloride 8 ml 09/23/24 15:35 09/23/24 15:55 Sodium Chloride 0.9% 10ml Vial IV 10/23/24 15:34 8 ml NEEDED PRN Administration dilute pepcid Sodium Chloride 10 ml 09/23/24 16:12 09/23/24 16:14 Sodium Chloride 0.9% 10ml Syr (Rad Only) IV 09/23/24 16:13 10 ml ONCE ONE Administration Sodium Chloride 50 ml 09/23/24 16:13 09/23/24 16:14 0.9 % Sodium Chloride 50 Ml Vial IV 09/23/24 16:14 50 ml ONCE ONE Administration ORDERS Category Date Time Status CT angio abdomen pelvis Stat Cat Scan 09/23/24 15:36 Completed CBC w/Auto Diff [Complete Blood Count Auto Diff] Stat Lab 09/23/24 15:35 Completed CMP [Comprehensive Metabolic Panel] Stat Lab 09/23/24 15:35 Completed HIV (1&2) Antibody Rapid Stat Lab 09/23/24 15:35 Completed Hep C Ab with Reflex to RNA Stat Lab 09/23/24 15:35 Received Lactic Acid Stat Lab 09/23/24 15:35 Completed Lipase Stat Lab 09/23/24 15:35 Completed PT INR [Prothrombin Time INR] Stat Lab 09/23/24 15:35 Completed PTT [Activated Partial Thrombo Time] Stat Lab 09/23/24 15:35 Completed Trop I [Troponin I] Stat Lab 09/23/24 15:35 Completed Troponin I Q3H Lab 09/23/24 18:10 Completed UA [Urinalysis and Microscopic] Stat Lab 09/23/24 15:20 Completed ECG Data Tracing #1: I reviewed this ECG and interpreted as documented below: Sinus bradycardia with a ventricular rate of [address] changes concerning for ischemia. Left axis deviation. Normal intervals. ECG initial impression date: 09/23/24 ECG initial impression time: 15:46 Medical Decision Narrative: In summary, this patient is a 74-year-old man presenting to the Emergency Department for evaluation of epigastric abdominal pain that started suddenly. Differential diagnoses considered include but are not limited to pancreatitis, gastritis, peptic ulcer disease, intestinal perforation, ischemic colitis, AAA, ACS. Ruling out the most morbid conditions drove assessment. It should be noted patient's history includes extensive tobacco use history and COPD which may or may not be at goal therapy. This complicates all aspects of care by increasing patient's risk for morbidity. On exam, the patient is lying in bed in no acute distress. He does have significant epigastric tenderness with voluntary guarding. Vitals are reassuring on cardiac telemetry. EKG was obtained is reassuring. Workup included CBC, CMP, lipase, lactic acid, coags, troponin, CTA abdomen and pelvis. He was given IV Toradol, oral Tylenol, IV Pepcid for symptomatic improvement. I independently interpreted CT scan prior to the radiologist read and noted iliac artery dissection. Please see their read for final interpretation. They noted dissection is likely chronic. It is noted he has a back lesion, which he is followed for outpatient by Dr. Rivers and derm already. Labs were obtained that demonstrated no significant leukocytosis, negative troponin, normal lipase, normal liver enzymes, no acutely concerning abnormalities. Urine is not concerning for infection. On reassessment, patient had significant improvement after administration of mentions above. He states he is feeling better and is having no pain. I power shared imaging with [facility] and had an interactive discussion with vascular surgery who and Dr. Porter in the transfer center who advised that they felt that the patient's dissection is chronic, as it is already calcified, and they do not feel that this would be causing his symptoms this is not flow limiting and would likely cause lower limb ischemia as opposed to significant abdominal pain. He is warm and well-perfused in his bilateral lower extremities with no pulse deficits. second troponin was obtained and was also negative. Patient continues to be asymptomatic with normal vital signs on cardiac telemetry on multiple subsequent reassessments. Ultimately, it is possible he could have peptic ulcer disease versus gastritis. He is already on a PPI as an outpatient. I do feel that he is appropriate for discharge home. He was given prescription for Maalox, instructions for close follow-up with primary care, which is already arranged for tomorrow, and also instructions for follow-up with gastroenterology given symptoms of early satiety, poor appetite, difficulty having bowel movements. Critical Care Critical Care Time Critical Care Time: No
[2024-09-23] MEDS: ONDANSETRON 4MG/2ML VIAL 4 MG IV (15:55)
[2024-09-23] MEDS: KETOROLAC 30MG/ML VIAL 15 MG IV (15:55)
[2024-09-23] MEDS: SODIUM CHLORIDE 0.9% 10ML VIAL 8 ML IV (15:55)
[2024-09-23] MEDS: ACETAMINOPHEN 500MG TAB 1000 MG PO (15:55)
[2024-09-23] MEDS: FAMOTIDINE 20MG/2ML VIAL 20 MG IV (15:55)
[2024-09-23 15:57] LABS: Alanine Aminotransferase 18 U/L (12-78); Albumin/Globulin Ratio 1.6 (1.1-1.8); Alkaline Phosphatase 60 U/L (38-126); Anion Gap 9.6 mEq/L (5-15); Aspartate Amino Transferase 28 U/L (17-59); Bilirubin,Total 0.5 mg/dl (0.2-1.3); Blood Urea Nitrogen 14 mg/dl (9-20); Calcium 8.6 mg/dl (8.4-10.2); Carbon Dioxide 25 mmol/L (22.0-30.0); Chloride 108 mmol/L (98-107); Creatinine Clearance Estimated 62 mL/min (50-200); Estimated Glomerular Filt Rate 94 ml/min (>60); GFR (African American) 114 ML/MIN (>60); Globulin 2.5 g/dL (1.3-3.2); Glucose 107 mg/dl (74-100); Lipase 86 U/L (23-300); Potassium 3.6 mmoL/L (3.5-5.1); Sodium 139 mmol/L (136-145); Total Protein,Serum 6.5 g/dl (6.3-8.2)
[2024-09-23 15:59] LABS: Activated Partial Thrombo Time 28.6 seconds (22.8-30.6); INR 0.97 (0.9-1.1); Prothrombin Time 10.9 seconds (10.1-12.5)
[2024-09-23] MEDS: SODIUM CHLORIDE 0.9% 10ML SYR (RAD ONLY) 10 ML IV (16:14)
[2024-09-23] MEDS: 0.9 % SODIUM CHLORIDE 50 ML VIAL IV (16:14)
[2024-09-23] MEDS: IOPAMIDOL-370 (76%);100ML BOTTLE 80 ML IV (16:14)
[2024-09-23 16:28] LABS: Troponin I < 0.01 ng/ml (0.00-0.034)
[2024-09-23 16:34] LABS: Mucus,Urine 4+ /lpf; RBC,Urine Occasional #/hpf (0-3); WBC,Urine Occasional #/hpf (0-3)
[2024-09-23 16:45] LABS: HIV (1&2) Antibody Rapid NONREACTIVE (NONREACTIVE)
--- NOTE | 2024-09-23 16:45 | PC.NURSE ---
DR MARTELL AT BEDSIDE TO UPDATE PT
--- NOTE | 2024-09-23 16:50 | PC.NURSE ---
calling [facility] at this time.
--- NOTE | 2024-09-23 16:53 | PC.NURSE ---
o/p with at this time.
--- NOTE | 2024-09-23 18:03 | PC.NURSE ---
DR MARTELL AT BEDSIDE TO UPDATE PT AND FAMILY
[2024-09-23] MEDS: BELLADONNA ALKALOIDS 60 ML ML PO (18:23)
[2024-09-23 19:04] LABS: Troponin I < 0.01 ng/ml (0.00-0.034)
[2024-09-24 09:19] LABS: HCV Ab Non Reactive (Non Reactive)
== END 2024-09-23 19:17 | disposition home or self-care (01) ==
PROVIDERS: Emergency Provider Emergency Medicine; PCP Internal Medicine Adolescent Medicine
DX: R10.13 Epigastric pain (principal); R19.4 Change in bowel habit; I77.72 Dissection of iliac artery
CPT/HCPCS: 74174; 80053; 81001; 83605; 83690; 84484; 85025; 85610; 85730; 86803; 87389; 93005; 96374; 96375; 99285; J1885; J2405; Q9967; S0028